=== PATIENT | female | born 1985 | race Caucasian/White ===

== ENCOUNTER 2016-06-17 06:52 | Emergency (ER) | payer BC, OTHER ==
[~2016-06-17] VITALS: Ht 157.5 cm; Wt 77.1 kg
[~2016-06-17 06:52] MED LIST: AMOX500C2 PO; CLTR1C90; FLT05NA16 NSEACH; SUPHEDRINE PE; TERB250T10
--- OUTSIDE RECORDS SUMMARY | 2016-06-17 06:59 | XMS REPORT | Continuity of Care Document ---
Author Author [facility] Organization [facility] Address Unknown Phone Unavailable Allergies Medications Problems Date Dx Coded Attending Type Code Diagnosis Diagnosed By 06/14/2008 848.9 Sprain 07/13/2008 110.5 Dermatophytosis Tinea Imbricata 09/27/2008 682.9 Cellulitis And Abscess Of Unspecified Sites 06/16/2011 727.41 GANGLION OF JOINT 10/22/2011 719.43 PAIN IN JOINT INVOLVING FOREARM 10/22/2011 727.49 OTHER GANGLION AND CYST OF SYNOVIUM TENDON AND BURSA Procedures Results Encounters ACCT No. Visit Date/Time Discharge Status Pt. Type Provider Facility Loc./Unit Complaint [id number] 09/10/2012 16:31:00 2012 23:59:59 CLS Outpatient
[2016-06-17] MEDS ORDERED: CLIN300C11 PO (07:50)
--- NOTE | 2016-06-17 07:50 | ED GU-Female ---
General Chief Complaint: -Female Stated Complaint: VAG ABSCESS Nursing Triage Note: PT CO OF ABCESS ON R LABIA Nursing Sepsis Screen: No Definite Risk Source: patient Exam Limitations: no limitations History of Present Illness Time seen by provider: 07:44 Initial Comments The patient is a 31-year-old white female. She reports that she began to have tenderness in the area of the right labia earlier in the week. There is been no drainage. There is no previous history of abscesses in this area Timing/Duration: week, getting worse Severity/Quality: moderate Location: other (right labial) Radiation: none Allergies and Home Medications Allergies Coded Allergies: No Known Drug Allergies (Unverified Allergy, Mild, 09/14/08) Home Medications No Active Prescriptions or Reported Meds Constitutional: see HPI EENTM: no symptoms reported Respiratory: no symptoms reported Cardiovascular: no symptoms reported Gastrointestinal: no symptoms reported Genitourinary: see HPI Musculoskeletal: no symptoms reported Skin: no symptoms reported Endocrine: No Symptoms Reported Hematologic/Lymphatic: No Symptoms Reported Past Igvdzvf-Mjnvbq-Ceqbmq Hx Patient Social History Alcohol Use: Denies Use Recreational Drug Use: No Smoking Status: Current Everyday Smoker Type Used: Cigarettes Recent Foreign Travel: No Contact w/Someone Who Travel: No Recent Infectious Disease Expo: No Recent Hopitalizations: No (DENIES HX) Reproductive System : No Physical Exam Vital Signs Vital Sign - Last 12Hours 06/17/16 07:09 Temp 97.6 Pulse 75 Resp 18 B/P 144/69 Pulse Ox 99 Capillary Refill : Less Than 3 Seconds General Appearance: mild distress Cardiovascular: normal peripheral pulses regular rate, rhythm no edema no gallop no JVD no murmur Respiratory: chest non-tender lungs clear normal breath sounds no respiratory distress no accessory muscle use respiratory distress Comments At initial exam it was noted that there was a sanguinopurulent drainage on the linens. In looking at the cyst/abscess had opened and drained. It was apparent at the vaginal os and the perineum. Progress/Results/Core Measures Results/Orders Vital Signs/I&O Vital Sign - Last 12Hours 06/17/16 07:09 Temp 97.6 Pulse 75 Resp 18 B/P 144/69 Pulse Ox 99 Blood Pressure Mean: 94 Departure Impression Impression: Primary Impression: labial abscess Disposition: 01 HOME, SELF-CARE Condition: Improved Departure-Patient Inst. Decision time for Depature: 07:50 [place]: [facility] [place] Primary Care Physician Add. Discharge Instructions: All discharge instructions reviewed with patient and/or family. Voiced understanding. Use hot steamy washcloths to area 4 times daily. Take clindamycin as directed Scripts Clindamycin HCl 300 Mg Sefxtcr162 Mg PO 3 times a day #20 CAP Prov:LUIS ALFREDO GUERRERO MD 06/17/16 LUIS ALFREDO GUERRERO MD Jun 17, 2016 07:50
[2016-06-17 08:05] VITALS: BP 144/69
== END 2016-06-17 08:05 | disposition home or self-care (01) ==
LOC: EDUNIT# 06:52 → ER 06:55
DX: N76.4 Abscess of vulva (principal); F17.210 Nicotine dependence, cigarettes, uncomplicated
CPT/HCPCS: 99282